=== PATIENT | female | born 1995 | race Caucasian/White ===

== ENCOUNTER 2017-02-26 23:31 | Emergency (ER) | payer OTHER ==
[~2017-02-26] VITALS: Ht 160 cm; Wt 56.4 kg
[~2017-02-26 23:31] MED LIST: OMNICEF300 MG PO; PYRIDIUM100 MG PO
[2017-02-27 00:19] LABS: HEMATOCRIT 37.4 % (36.0-46.0); MCH 28.4 PG (29.0-34.0); MCHC 33.2 G/DL (30.0-36.0); MCV 85.8 FL (83-99); MEAN PLAT.VOLUME 9.8 uM^3 (9.5-12.4); PLATELET COUNT 272 K/uL (156-360); RBC DIS.WIDTH-CV 11.9 % (11.8-14.6); RBC DIS.WIDTH-SD 37.6 % (39-53); RED BLOOD COUNT 4.36 M/uL (3.80-5.20); WHITE BLOOD COUNT 14.9 K/uL (4.1-10.2)
[2017-02-27 00:33] LABS: CHLORIDE 103 mEq/L (99-109); POTASSIUM 3.7 mEq/L (3.7-5.4); SODIUM 138 mEq/L (136-147)
[2017-02-27 00:35] LABS: GLUCOSE 87 mg/dL (70-99)
[2017-02-27 00:37] LABS: ANION GAP 12 MEQ/L (2-14); TOTAL BILIRUBIN 0.4 mg/dL (0.0-1.0)
[2017-02-27 00:37] LABS: ADD MIUA? YES; BILIRUBIN NEGATIVE; BLOOD NEGATIVE; COLOR YELLOW ((YELLOW)); GLUCOSE (STRIP) NEGATIVE; KETONES 5; LEUKOCYTES SMALL; NITRITE NEGATIVE; PROTEIN (STRIP) 30; SPECIFIC GRAVITY 1.026 (1.000-1.030); UROBILINOGEN 0.2 MG/DL (0.2-1.0)
[2017-02-27 00:39] LABS: ALKALINE PHOSPHATASE 81 IU/L (3-129); GFR ESTIMATE (CALCULATED) > 59 mL/min/
[2017-02-27 00:40] LABS: UREA NITROGEN (BUN) 17 mg/dL (9-23)
[2017-02-27 00:48] LABS: QUANTITATIVE HCG < 4.0 MIU/ML
[2017-02-27 01:14] LABS: BACTERIA 1+ /HPF; EPITHELIAL CELLS 1+ /HPF; MUCUS 1+ /LPF; RED BLOOD CELLS NONE SEEN /HPF (0-5); UCUL ADDED? NO; WHITE BLOOD CELLS 0-5 /HPF (0-5)
[2017-02-27 02:28] LABS: LIPASE 15 U/L (1.0-51.0)
[2017-02-27] MEDS ORDERED: BENTYL20 MG PO (02:47)
[2017-02-27 03:03] VITALS: BP 128/77
== END 2017-02-27 03:03 | disposition home or self-care (01) ==
LOC: EME 23:31
DX: R10.13 Epigastric pain (principal); R11.2 Nausea with vomiting, unspecified; R19.7 Diarrhea, unspecified; B34.9 Viral infection, unspecified
CPT/HCPCS: 80053; 81003; 83690; 84702; 85027; 99281; 99284